=== PATIENT | male | born 2000 | race African-American/Black ===

== ENCOUNTER 2021-08-09 16:10 | Emergency (ER) | payer OTHER ==
[~2021-08-09] VITALS: Ht 188 cm; Wt 122.2 kg
[2021-08-09 16:10] VITALS: BP 160/97
--- NOTE | 2021-08-09 16:10 | NUR ---
Pt PAN via gurney to bed 10.
[2021-08-09] MEDS ORDERED: NACL 0.9% 1,000 ML IV ONE (16:20)
--- NOTE | 2021-08-09 16:30 | NUR ---
21 Y/O MALE BIBA C/O FULL BODY ACHES X3 HOURS. PT PLAYED FULL FOOTBALL GAME AND BEGAN HAVING LEG CRAMPS BUT NOW CRAMPS ARE WORSENING AND MOVING ALL OVER BODY, PREDOMINANTLY UPPER STOMACH AND GROIN AREA. IF PT TRIES TO MOVE, CRAMPS WORSEN AND IS NOT ABLE TO WALK. DENIES CP/SOB. PT STATES INTERMITTENT CRAMPING 5/10 PAIN. 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 DENIES ANY NAUSEA/VOMITING OR DIARRHEA/CONSTIPATION. PMH:DENIES NKDA
[2021-08-09 16:48] LABS: BASOPHILS % (AUTO) 0.3 % (0.0-2.0); HEMATOCRIT 46.1 % (36-52); HEMOGLOBIN 15.2 g/dL (12.0-18.0); LYMPHOCYTES # (AUTO) 1.7 K/uL (2.0-11.5); LYMPHOCYTES % (AUTO) 14.4 % (20.5-51.1); MEAN CORPUSCULAR HEMOGLOBIN 27 pg (27-31); MEAN CORPUSCULAR HGB CONC 33 g/dL (33-37); MEAN CORPUSCULAR VOLUME 81.4 fL (80-94); MONOCYTES # (AUTO) 0.9 K/uL (0.8-1.0); MONOCYTES % (AUTO) 7.3 % (1.7-9.3); NEUTROPHILS # (AUTO) 9.4 K/uL (1.8-7.7); PLATELET COUNT (AUTO) 285 K/uL (140-450); RED BLOOD CELL COUNT(AUTO) 5.67 MIL/uL (4.20-6.10); RED CELL DISTRIBUTION WIDTH 15.6 % (11.6-13.7)
[2021-08-09 17:09] LABS: ALBUMIN 4.8 g/dL (3.4-5.0); ANION GAP 16.9 (8-16); CREATININE 1.2 mg/dL (0.6-1.3); POTASSIUM 3.9 mmol/L (3.5-5.1); TOTAL BILIRUBIN 0.3 mg/dL (0.0-1.0)
--- NOTE | 2021-08-09 17:09 | NUR ---
UA SENT TO LAB
[2021-08-09 17:16] LABS: APPEARANCE,URINE CLEAR (CLEAR); BILIRUBIN,URINE NEGATIVE (NEGATIVE); BLOOD, URINE NEGATIVE (NEGATIVE); COLOR,URINE DARK YELLOW (YELLOW); LEUKOCYTE ESTERASE ,URINE NEGATIVE (NEGATIVE); NITRITE, URINE NEGATIVE (NEGATIVE); UGLUCOSE NEGATIVE (NEGATIVE)
[2021-08-09 17:43] VITALS: BP 160/97
--- NOTE | 2021-08-09 17:43 | NUR ---
Patient discharged with v/s stable. Written and verbal after care instructions given and explained. Patient alert, oriented and verbalized understanding of instructions. Ambulatory with steady gait. All questions addressed prior to discharge. ID band removed. IV Discontinued. Patient advised to follow up with PMD. Opportunity to ask questions provided and answered.
[2021-08-09 17:44] LABS: CKMB RELATIVE INDEX 0.8 (0.0-2.5); CREATINE KINASE MB 5.1 ng/mL (0-3.6)
== END 2021-08-09 17:43 | disposition home or self-care (01) ==
LOC: MED 16:10
DX: E86.0 Dehydration (principal); R25.2 Cramp and spasm
CPT/HCPCS: 36415; 80053; 81003; 82550; 82553; 85025; 96360; 99283; J7030